=== PATIENT | male | born 1995 | race Caucasian/White ===

== ENCOUNTER 2020-04-04 12:54 | Emergency (ER) | payer BC, SELFPAY ==
[2020-04-04 12:55] VITALS: BP 118/63; PULSE 91; RESP 16; TEMP 36; O2SAT 100; BMI 22.8
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
[2020-04-04 14:06] VITALS: RESP 16
== END 2020-04-04 14:06 | disposition home or self-care (01) ==
LOC: ED 13:56
PROVIDERS: Emergency Provider Physician Assistant
DX: S46.912A Strain of unspecified muscle, fascia and tendon at shoulder and upper arm level, left arm, initial encounter (principal); M54.6 Pain in thoracic spine; V86.59XA Driver of other special all-terrain or other off-road motor vehicle injured in nontraffic accident, initial encounter; Y93.I9 Activity, other involving external motion; Y92.89 Other specified places as the place of occurrence of the external cause; Y99.8 Other external cause status
CPT/HCPCS: 71101; 73030; 99282